=== PATIENT | female | born 1985 | race Hispanic/Latino ===

== ENCOUNTER 2023-02-06 14:20 | Outpatient (CLI) | payer OTHER ==
[~2023-02-06] VITALS: Ht 165.1 cm; Wt 77.6 kg
[~2023-02-06 14:20] MED LIST: ALBUTEROL SULFATE 2.5MG/0.5ML INH NEB SOLN INH PRN; EPINEPHrine INJ 1 MG/ML 1ML AMP IM PRN; diphenhydrAMINE 50MG/ML VIAL IV PRN; methylPREDNISolone 125MG 2ML VIAL IV PRN
[2023-02-06] MEDS ORDERED: NATALIZUMAB OVER 1 HOUR IV ONE ×2 (15:30)
[2023-02-06] MEDS ORDERED: NS 1,000 ML IV SCH (15:30)
[2023-02-06] MEDS ORDERED: diphenhydrAMINE 25MG CAP PO ONE (15:30)
[2023-02-06 16:18] VITALS: BP 123/68; O2SAT 100
[2023-02-06] MEDS ORDERED: ONDANSETRON 4MG 2ML VIAL IV PRN (16:35)
[2023-02-06 17:45] VITALS: BP 130/58; O2SAT 98
== END 2023-02-06 17:45 | disposition home or self-care (01) ==
LOC: M INFU 14:20
PROVIDERS: ATTEND Psychiatry & Neurology Neurology
DX: G35 Multiple sclerosis (principal)
CPT/HCPCS: 96365; 96367; J2323; J2405

== ENCOUNTER → 2023-02-09 | Outpatient (CLI) | payer OTHER | LOC: M RAD 14:03 | PROVIDERS: ATTEND Advanced Practice Midwife | DX: O44.42 Low lying placenta NOS or without hemorrhage, second trimester (principal); Z3A.27 27 weeks gestation of pregnancy ==

== ENCOUNTER 2023-03-19 17:03 | Outpatient (CLI) | payer OTHER ==
[~2023-03-19] VITALS: Ht 165.1 cm; Wt 78.4 kg
[~2023-03-19 17:03] MED LIST changes: -ALBUTEROL SULFATE 2.5MG/0.5ML INH NEB SOLN INH PRN; -EPINEPHrine INJ 1 MG/ML 1ML AMP IM PRN; +PRENTAB9 PO; +TYSA1INJ IV; -diphenhydrAMINE 50MG/ML VIAL IV PRN; -methylPREDNISolone 125MG 2ML VIAL IV PRN
[2023-03-19] MEDS ORDERED: TUMS500C PO (18:27)
[2023-03-19] MEDS ORDERED: HOME MED LIST COMPLETE! XX SCH (18:30)
[2023-03-19] MEDS ORDERED: CLOTRIMAZOLE 1% VAG CR 45 GM PV SCH (21:00)
== END 2023-03-19 19:08 | disposition home or self-care (01) ==
LOC: M LDO 17:03
PROVIDERS: ATTEND Obstetrics & Gynecology
DX: O47.03 False labor before 37 completed weeks of gestation, third trimester (principal); O23.593 Infection of other part of genital tract in pregnancy, third trimester; Z3A.34 34 weeks gestation of pregnancy; O99.353 Diseases of the nervous system complicating pregnancy, third trimester; G35 Multiple sclerosis; Z79.899 Other long term (current) drug therapy
CPT/HCPCS: 59025; 76815; 81001; G0463

== ENCOUNTER 2023-04-03 06:06 | Outpatient (CLI) | payer OTHER ==
[~2023-04-03] VITALS: Ht 165.1 cm; Wt 79.0 kg
[~2023-04-03 06:06] MED LIST changes: +TUMS500C PO
[2023-04-03] MEDS ORDERED: ALBUTEROL SULFATE 2.5MG/0.5ML INH NEB SOLN INH PRN (07:01)
[2023-04-03] MEDS ORDERED: methylPREDNISolone 125MG 2ML VIAL IV PRN (07:01)
[2023-04-03] MEDS ORDERED: diphenhydrAMINE 50MG/ML VIAL IV PRN (07:01)
[2023-04-03] MEDS ORDERED: EPINEPHrine INJ 1 MG/ML 1ML AMP IM PRN (07:01)
[2023-04-03] MEDS ORDERED: CURRENT HEIGHT AND WEIGHT NEEDED ON PATIENT XX SCH (09:00)
[2023-04-03] MEDS ORDERED: ONDANSETRON 4MG TAB PO PRN (15:10)
[2023-04-03 15:15] VITALS: BP 130/80; O2SAT 96
[2023-04-03] MEDS ORDERED: NATALIZUMAB OVER 1 HOUR IV ONE ×2 (15:30)
[2023-04-03] MEDS ORDERED: diphenhydrAMINE 25MG CAP PO ONE (15:30)
[2023-04-03] MEDS ORDERED: NS 1,000 ML IV SCH (15:30)
[2023-04-03 16:45] VITALS: BP 110/71; O2SAT 97
== END 2023-04-03 16:45 ==
LOC: M INFU 06:06 → EDUNIT# 15:30 → M INFU 16:45
PROVIDERS: ATTEND Psychiatry & Neurology Neurology
DX: G35 Multiple sclerosis (principal)
CPT/HCPCS: 96365; J2323

== ENCOUNTER 2023-04-09 11:19 | Inpatient (IN) | payer OTHER ==
[~2023-04-09] VITALS: Ht 165.1 cm; Wt 80.2 kg
[2023-04-09 11:36] VITALS: BP 122/77
[2023-04-09] MEDS ORDERED: PEPC1TAB5 PO (11:42)
[2023-04-09] MEDS ORDERED: PEPC10TA6 PO (11:42)
[2023-04-09] MEDS ORDERED: HOME MED LIST COMPLETE! XX SCH (11:45)
[2023-04-09] MEDS ORDERED: LACTATED RINGER'S 1000 ML IV STA (12:12)
[2023-04-09] MEDS ORDERED: OXYTOCIN INJ 10UNITS/ML 1ML VIAL IM PRN (12:15)
[2023-04-09] MEDS ORDERED: TRANEXAMIC ACID INJection 1,000 MG in NS 100 ML IV PRN (12:15)
[2023-04-09] MEDS ORDERED: LIDOCAINE 1% MDV 20ML VIAL INFIL PRN (12:15)
[2023-04-09] MEDS ORDERED: METHYLERGONOVINE MALEATE 0.2MG/ML 1ML VIAL IM PRN (12:15)
[2023-04-09] MEDS ORDERED: OXYTOCIN DRIP 30 UNITS in IV 1 EA IV PRN (12:15)
[2023-04-09] MEDS ORDERED: ONDANSETRON 4MG 2ML VIAL IV PRN (13:25)
[2023-04-09] MEDS ORDERED: NALBUPHINE HCL 10 MG/ML 1ML AMP IV PRN (13:25)
[2023-04-09 13:28] LABS: HEMATOCRIT 35.2 % (36.0-47.0); HEMOGLOBIN 11.4 g/dl (12.0-15.5); MEAN CORPUSCULAR HEMOGLOBIN 28.2 pg (27.0-33.0); MEAN CORPUSCULAR HGB CONC 32.4 g/dl (32.0-36.5); MEAN CORPUSCULAR VOLUME 87.1 fl (80.0-96.0); PLATELET COUNT, AUTOMATED 305 10^3/uL (150-450); RED BLOOD COUNT 4.04 10^6/uL (4.00-5.40); WHITE BLOOD COUNT 12.5 10^3/uL (4.0-10.0)
[2023-04-09 16:54] VITALS: BP 121/84
[2023-04-09 18:28] VITALS: BP 116/83
[2023-04-09] MEDS ORDERED: OXYTOCIN DRIP 30 UNITS in IV 1 EA IV SCH (20:30)
[2023-04-09 21:23] VITALS: BP 118/73
[2023-04-09 23:40] VITALS: BP 114/71
[2023-04-10] VITALS (19 sets, daily range): BP systolic 104–140; BP diastolic 57–83; O2SAT 97
[2023-04-10] MEDS ORDERED: EPIDURAL/PCA KEYS XX PRN (08:05)
[2023-04-10] MEDS ORDERED: diphenhydrAMINE 50MG/ML VIAL IV PRN (08:05)
[2023-04-10] MEDS ORDERED: LR 500 ML IV PRN (08:05)
[2023-04-10] MEDS ORDERED: ONDANSETRON 4MG 2ML VIAL IV PRN ×2 (08:05→10:10)
[2023-04-10] MEDS ORDERED: NALOXONE INJ 0.4MG/1ML VIAL IV PRN (08:05)
[2023-04-10] MEDS ORDERED: FENTANYL/ROPIVACAINE/NACL BAG 100 ML EPIDURAL SCH (08:05)
[2023-04-10] MEDS ORDERED: ePHEDrine SULFATE 25 MG/5 ML(5MG/ML) SYRINGE IVP PRN (08:05)
[2023-04-10] MEDS: PRENATAL VITAMINS CHEWABLE TABLET PO SCH (09:00)
[2023-04-10 10:09] LABS: CORD GAS ABE A -9.2; CORD GAS ABE V -6.6; CORD GAS HCO3 V 19.3 MMOL/L; CORD GAS O2 SAT A 84.1 %; CORD GAS O2 SAT V 82.6 %; CORD GAS PCO2 A 49.1 mmHg; CORD GAS PH A 7.205 UNITS; CORD GAS PH V 7.301 UNITS; CORD GAS PO2 A 46.4 mmHg; CORD GAS PO2 V 38.5 mmHg; CORD GAS SBC V 18.8 MMOL/L; CORD GAS TCO2 A 20.5 MMOL/L; CORD GAS TCO2 V 20.5 MMOL/L
[2023-04-10] MEDS ORDERED: RHOGAM 300MCG (1500IU) INJ IM SCH (10:10)
[2023-04-10] MEDS ORDERED: METOCLOPRAMIDE INJ 10MG/2ML VIAL IV PRN (10:10)
[2023-04-10] MEDS ORDERED: OXYTOCIN DRIP 30 UNITS in IV 1 EA IV SCH (10:10)
[2023-04-10] MEDS ORDERED: METHYLERGONOVINE MALEATE 0.2MG/ML 1ML VIAL IM PRN (10:10)
[2023-04-10] MEDS ORDERED: DIBUCAINE 1% OINTMENT 30GM TOP PRN (10:10)
[2023-04-10] MEDS ORDERED: DOCUSATE SODIUM 100MG CAPSULE PO PRN (10:10)
[2023-04-10] MEDS ORDERED: LR 1,000 ML IV SCH (10:10)
[2023-04-10] MEDS: ACETAMINOPHEN 500 MG TAB PO SCH ×2 (12:15→17:55)
[2023-04-10] MEDS: IBUPROFEN 800 MG TAB PO SCH ×2 (14:01→22:42)
[2023-04-11] MEDS: ACETAMINOPHEN 500 MG TAB PO SCH ×4 (00:06→17:44)
[2023-04-11] MEDS: IBUPROFEN 800 MG TAB PO SCH ×3 (05:46→21:34)
[2023-04-11 06:00] VITALS: BP 120/74; O2SAT 100
[2023-04-11 07:09] LABS: HEMATOCRIT 34.8 % (36.0-47.0); HEMOGLOBIN 11.1 g/dl (12.0-15.5); MEAN CORPUSCULAR HEMOGLOBIN 28.5 pg (27.0-33.0); MEAN CORPUSCULAR HGB CONC 31.9 g/dl (32.0-36.5); MEAN CORPUSCULAR VOLUME 89.2 fl (80.0-96.0); PLATELET COUNT, AUTOMATED 245 10^3/uL (150-450); WHITE BLOOD COUNT 15.4 10^3/uL (4.0-10.0)
[2023-04-11] MEDS: PRENATAL VITAMINS CHEWABLE TABLET PO SCH (08:49)
[2023-04-11] MEDS ORDERED: PRENATAL VITAMINS CHEWABLE TABLET PO SCH (09:00)
[2023-04-11] MEDS: FAMOTIDINE 20 MG TAB PO SCH ×2 (10:54→21:34)
[2023-04-11 18:00] VITALS: BP 126/74; O2SAT 100
[2023-04-12] MEDS: ACETAMINOPHEN 500 MG TAB PO SCH ×3 (00:08→11:36)
[2023-04-12 06:00] VITALS: BP 118/81; O2SAT 99
[2023-04-12] MEDS: IBUPROFEN 800 MG TAB PO SCH (06:10)
[2023-04-12] MEDS: PRENATAL VITAMINS CHEWABLE TABLET PO SCH (07:58)
[2023-04-12] MEDS: FAMOTIDINE 20 MG TAB PO SCH (07:58)
[2023-04-12] MEDS ORDERED: MEASLES,MUMPS,RUBELLA VACCINE INJ (MMR-II) SC.IMMUN ONE (09:00)
[2023-04-12] MEDS ORDERED: IBUP80TA PO (09:19)
[2023-04-12] MEDS ORDERED: COLA100C5 PO (09:19)
[2023-04-12] MEDS ORDERED: ACET-683 PO (09:19)
== END 2023-04-12 12:00 | disposition home or self-care (01) | DRG 807 ==
LOC: M LDO 11:19 → M LDI 12:32 → M OBS 04-10 12:31
PROVIDERS: ADMIT Obstetrics & Gynecology; ATTEND Obstetrics & Gynecology
PROC: 10E0XZZ Delivery of Products of Conception, External Approach (ICD-10-PCS; principal; 2023-04-10)
DX: O99.354 Diseases of the nervous system complicating childbirth (principal); Z37.0 Single live birth; Z3A.37 37 weeks gestation of pregnancy; G35 Multiple sclerosis; Z79.899 Other long term (current) drug therapy; O09.523 Supervision of elderly multigravida, third trimester

== ENCOUNTER 2023-06-30 08:41 | Outpatient (CLI) | payer OTHER ==
[~2023-06-30] VITALS: Ht 165.1 cm; Wt 70.7 kg
[~2023-06-30 08:41] MED LIST changes: +ACET-683 PO; +ALBUTEROL SULFATE 2.5MG/0.5ML INH NEB SOLN INH PRN; +COLA100C5 PO; +EPINEPHrine INJ 1 MG/ML 1ML AMP IM PRN; +IBUP80TA PO; +NATALIZUMAB OVER 1 HOUR IV ONE; +NS 1,000 ML IV SCH; +ONDANSETRON 4MG TAB PO PRN; +PEPC10TA6 PO; +PEPC1TAB5 PO; +diphenhydrAMINE 25MG CAP PO ONE; +diphenhydrAMINE 50MG/ML VIAL IV PRN; +methylPREDNISolone 125MG 2ML VIAL IV PRN
[2023-06-30 08:45] VITALS: BP 116/62; O2SAT 99
[2023-06-30 11:00] VITALS: BP 106/64; O2SAT 99
== END 2023-06-30 11:00 ==
LOC: M INFU 08:41
PROVIDERS: ATTEND Psychiatry & Neurology Neurology
DX: G35 Multiple sclerosis (principal)
CPT/HCPCS: 96365; J2323

== ENCOUNTER 2023-09-22 15:36 | Outpatient (CLI) | payer OTHER ==
[~2023-09-22] VITALS: Ht 165.1 cm; Wt 67.0 kg
[2023-09-22 14:50] VITALS: BP 117/82; O2SAT 100
[2023-09-22 17:22] VITALS: BP 95/56; O2SAT 100
[2023-09-22 17:30] VITALS: BP 95/56; TEMP 36.1; O2SAT 100
== END 2023-09-22 17:30 ==
LOC: M INFU 15:36
PROVIDERS: ATTEND Psychiatry & Neurology Neurology
DX: G35 Multiple sclerosis (principal)
CPT/HCPCS: 96365; J2323

== ENCOUNTER → 2023-09-28 | Outpatient (CLI) | payer OTHER ==
[~2023-09-28] MED LIST changes: -ALBUTEROL SULFATE 2.5MG/0.5ML INH NEB SOLN INH PRN; -EPINEPHrine INJ 1 MG/ML 1ML AMP IM PRN; -NATALIZUMAB OVER 1 HOUR IV ONE; -NS 1,000 ML IV SCH; -ONDANSETRON 4MG TAB PO PRN; -diphenhydrAMINE 25MG CAP PO ONE; -diphenhydrAMINE 50MG/ML VIAL IV PRN; -methylPREDNISolone 125MG 2ML VIAL IV PRN
== END ==
LOC: M PLARAD 09:20
PROVIDERS: ATTEND Family Medicine
DX: G35 Multiple sclerosis (principal)

== ENCOUNTER 2023-10-25 10:10 | Outpatient (CLI) | payer OTHER ==
[2023-10-25 10:10] VITALS: BP 136/65; O2SAT 95
[~2023-10-25 10:10] MED LIST changes: +ALBUTEROL SULFATE 2.5MG/0.5ML INH NEB SOLN INH PRN; +EPINEPHrine INJ 1 MG/ML 1ML AMP IM PRN; +NS 1,000 ML IV SCH; +diphenhydrAMINE 50MG/ML VIAL IV PRN; +methylPREDNISolone 125MG 2ML VIAL IV PRN
[2023-10-25] MEDS: NATALIZUMAB OVER 1 HOUR IV ONE (10:28)
[2023-10-25 11:39] VITALS: BP 110/66; O2SAT 96
== END 2023-10-25 11:45 | disposition home or self-care (01) ==
LOC: M INFU 10:10
PROVIDERS: ATTEND Psychiatry & Neurology Neurology
DX: G35 Multiple sclerosis (principal)
CPT/HCPCS: 96365; J2323

== ENCOUNTER 2023-11-22 10:27 | Outpatient (CLI) | payer OTHER ==
[~2023-11-22] VITALS: Ht 165.1 cm; Wt 66.3 kg
[2023-11-22 10:30] VITALS: BP 130/74; O2SAT 98
[2023-11-22] MEDS: NATALIZUMAB OVER 1 HOUR IV ONE (11:04)
[2023-11-22 12:10] VITALS: BP 116/65; O2SAT 94
[2023-11-22 12:22] VITALS: BP 100/67; O2SAT 94
== END 2023-11-22 12:23 ==
LOC: M INFU 10:27
PROVIDERS: ATTEND Psychiatry & Neurology Neurology
DX: G35 Multiple sclerosis (principal)
CPT/HCPCS: 96365; J2323

== ENCOUNTER 2023-12-20 10:20 | Outpatient (CLI) | payer OTHER ==
[~2023-12-20] VITALS: Ht 165.1 cm; Wt 65.0 kg
[2023-12-20 10:20] VITALS: BP 110/75; O2SAT 98
[2023-12-20] MEDS: NATALIZUMAB OVER 1 HOUR IV ONE (10:47)
[2023-12-20 12:05] VITALS: BP 112/66; O2SAT 100
[2023-12-20 13:05] VITALS: BP 111/68; O2SAT 99
== END 2023-12-20 13:05 | disposition home or self-care (01) ==
LOC: M INFU 10:20
PROVIDERS: ATTEND Psychiatry & Neurology Neurology
DX: G35 Multiple sclerosis (principal)
CPT/HCPCS: 96365; J2323

== ENCOUNTER 2024-02-23 10:20 | Outpatient (CLI) | payer OTHER ==
[~2024-02-23] VITALS: Ht 165.1 cm; Wt 65.0 kg
[2024-02-23 10:40] VITALS: BP 121/59; O2SAT 99
[2024-02-23] MEDS: NATALIZUMAB OVER 1 HOUR IV ONE (10:53)
[2024-02-23 11:50] VITALS: BP 123/64; O2SAT 99
== END 2024-02-23 11:50 ==
LOC: M INFU 10:20
PROVIDERS: ATTEND Psychiatry & Neurology Neurology
DX: G35 Multiple sclerosis (principal)
CPT/HCPCS: 96365; J2323

== ENCOUNTER 2024-03-22 11:10 | Outpatient (CLI) | payer OTHER ==
[~2024-03-22] VITALS: Ht 165.1 cm; Wt 61.8 kg
[~2024-03-22 11:10] MED LIST changes: -NS 1,000 ML IV SCH
[2024-03-22 11:15] VITALS: BP 121/70; O2SAT 99
[2024-03-22] MEDS ORDERED: NS 1,000 ML IV SCH (11:30)
[2024-03-22] MEDS: NATALIZUMAB OVER 1 HOUR IV ONE (11:47)
[2024-03-22 12:57] VITALS: BP 125/79; O2SAT 100
== END 2024-03-22 13:00 | disposition home or self-care (01) ==
LOC: M INFU 11:10
PROVIDERS: ATTEND Psychiatry & Neurology Neurology
DX: G35 Multiple sclerosis (principal)
CPT/HCPCS: 96365; J2323

== ENCOUNTER 2024-04-19 11:40 | Outpatient (CLI) | payer OTHER ==
[~2024-04-19] VITALS: Ht 165.1 cm; Wt 62.7 kg
[~2024-04-19 11:40] MED LIST changes: +NS 1,000 ML IV SCH
[2024-04-19 12:17] VITALS: BP 127/75; O2SAT 100
[2024-04-19] MEDS: NATALIZUMAB OVER 1 HOUR IV ONE (13:09)
[2024-04-19 14:30] VITALS: BP 115/80; O2SAT 100
== END 2024-04-19 14:30 ==
LOC: M INFU 11:40
PROVIDERS: ATTEND Psychiatry & Neurology Neurology
DX: G35 Multiple sclerosis (principal)
CPT/HCPCS: 96365; J2323

== ENCOUNTER → 2024-05-17 | Outpatient (CLI) | payer OTHER ==
[~2024-05-17] VITALS: Ht 165.1 cm; Wt 62.7 kg
[2024-05-17 11:00] VITALS: BP 126/77; O2SAT 94
[2024-05-17] MEDS: NATALIZUMAB OVER 1 HOUR IV ONE (11:47)
[2024-05-17 12:55] VITALS: BP 136/80; O2SAT 100
== END ==
LOC: M INFU 10:29
PROVIDERS: ATTEND Psychiatry & Neurology Neurology
DX: G35 Multiple sclerosis (principal)
CPT/HCPCS: 96365; J2323